=== PATIENT | male | born 1975 | race Two or more races ===

== ENCOUNTER 2023-10-10 09:32 | Outpatient (AMB) | payer OTHER, SELFPAY ==
--- NOTE | 2023-10-10 09:33 | AM.OFFWIN_ITS ---
Intake Vital Signs 10/10/23 10:11 Height 5 ft 7 in Weight 169 lb BMI 26.5 BP 120/60 Blood Pressure Location Lt brachial Position Sitting Pulse 90 Pulse Source Pulse Oximeter Temp 97.4 F Temp Source Temporal Artery Scan Pulse Oximetry (%) 98 Oxygen Delivery Method Room Air Intake Visit Reasons: [employer] Pain/swelling LT side Face Intake Note: pt is here today for pain and swelling lft side face started 3 days ago Patient Tobacco Use Status: Never used Tobacco Allergies No Known Allergies Allergy (Verified 10/10/23 10:13) Do you need a note to return to daycare/school/sports/work: No HPI HPI Comments History of Present Illness Details Patient is a 48-year-old male complaining of pain and swelling on the left side of his face for 3 days. He states he has pain with chewing, and he feels like the tooth is moving. He states he does not have a dentist or dental insurance. He denies any fevers. PFSH Social History Patient Tobacco Use Status: Never used Tobacco Review of Systems Const All systems reviewed & are unremarkable except as noted in HPI and below Physical Exam Vital Signs: Last Vital Signs Temp 97.4 F 10/10/23 10:11 Pulse 90 10/10/23 10:11 BP 120/60 10/10/23 10:11 Pulse Ox 98 10/10/23 10:11 Oxygen Delivery Method Room Air 10/10/23 10:11 BMI result Body Mass Index 26.5 Const General: cooperative, healthy appearing, comfortable and no acute distress Orientation/consciousness: patient oriented x3 Limitations: no limitations HEENT Head: Yes normal to inspection Ears: external ears normal Face and sinus: No ecchymosis, No erythema, Yes edema (left cheek), No laceration and No sinus tenderness Mouth: Normal oral and palatal mucosa present, lip normal, tongue normal and moist mucous membranes Teeth and gingiva: poor dentition and other (#15 brown base, loose) Throat: Yes tonsils normal and Yes uvula midline Eyes General: appearance normal, both eyes and all related structures Neck Neck: Yes normal visual inspection, Yes full ROM and Yes no lymphadenopathy Resp Effort & Inspection: normal respiratory effort and able to speak in complete sentences Skin General skin exam: no rashes or lesions noted Neuro General: patient oriented x3 Assessment & Plan Assessment & Plan (1) Dental abscess: Code(s): K04.7 - Periapical abscess without sinus Plan: VSS. Sent prescription for antibiotic but did stress the patient is important he follows up with a dentist as that tooth likely needs to be pulled. Recommended 2 dentists in the area. Plan See above Medications: New amoxicillin-pot clavulanate 875-125 mg 1 tab PO Q12H 20 tabs 0RF Coding Level of Care Code New Pt Level 3 (43732) Diagnoses Dental abscess K04.7
[2023-10-10 10:11] VITALS: BP 120/60; PULSE 90; TEMP 36.3; O2SAT 98; BMI 26.5
== END 2023-10-10 11:15 | disposition home or self-care (01) ==
PROVIDERS: Visit Provider Physician Assistant
DX: R22.0 Localized swelling, mass and lump, head (principal); K04.7 Periapical abscess without sinus
CPT/HCPCS: 99203